=== PATIENT | male | born 1965 | race Caucasian/White ===

== ENCOUNTER → 2018-01-24 13:58 | Outpatient (CLI) | payer BC, SELFPAY ==
--- NOTE | 2018-01-24 14:01 | RAD_ITS ---
STUDY: X-RAY CHEST REASON FOR EXAM: Male, 52 years old. Hypercalcemia TECHNIQUE: PA and lateral views of the chest. COMPARISON: 07/20/2016 FINDINGS: There is hyperinflation of the lungs consistent with chronic obstructive lung disease (COPD). There is a 8mm nodule at the left lung base which is unchanged from the prior study. There is no demonstrated pleural abnormality. Normal size heart. Normal mediastinum and isaac. Normal visualized pulmonary arteries. Normal visualized aortic arch and descending thoracic aorta. There are diffuse degenerative changes of the visualized thoracic spine. Normal visualized ribs, clavicles, and shoulders. There is no demonstrated abnormality of the visualized soft tissue structures of the upper abdomen. RAD/Chest PA and Lateral IMPRESSION: COPD. No change to the 8 mm nodule at the left lung base. Electronically Signed: Glynn Gan DO at 13:29 EDT Tel , Service support ,
== END ==
PROVIDERS: Family Provider Internal Medicine; PCP Internal Medicine; Visit Provider Internal Medicine
DX: E83.52 Hypercalcemia (principal)
CPT/HCPCS: 71046

== ENCOUNTER → 2018-02-21 13:25 | Outpatient (CLI) | payer BC, SELFPAY ==
--- NOTE | 2018-02-21 14:08 | CT_ITS ---
STUDY: CTA CHEST REASON FOR EXAM: Male, 52 years old. Abnormal x-ray. RADIATION DOSAGE (If Supplied By Facility): CTDIvol = ( 21.71 ) mGy, DLP = ( 733.49 ) mGycm TECHNIQUE: The examination was performed with the intravenous administration of 100 ml of Isovue 300 contrast material. Post-processing of the angiographic images was performed, with multiplanar reformation and 3D reconstruction. Individualized dose optimization techniques were used for this CT. COMPARISON: Chest, January 24, 2018. FINDINGS: Normal enhancement of the main pulmonary artery and right and left pulmonary arteries. Normal enhancement of the bilateral peripheral pulmonary arteries. There is no demonstrated pulmonary embolism. There is prominence of the main pulmonary arteries without peripheral pulmonary vascular congestion, suggesting pulmonary hypertension. There is atherosclerotic changes of the thoracic aorta without aneurysm. There is no demonstrated aortic dissection. Normal heart and pericardium. There are calcifications of the coronary arteries. There is evidence of mediastinal lymphadenopathy. There is a 1.3 x 0.9 x 1.4 cm right paratracheal lymph node. There are 2 large subcarinal lymph nodes measuring 1.9 x 1 x 2.1 cm in size and 1.7 x 2.2 x 2.1 cm in size. Normal hilar regions. Normal visualized trachea and bronchi. The lungs are hyper expanded, with flattening of the hemidiaphragms. There is minimal ground glass densities throughout the upper lungs thought to be chronic. There is no focal mass or consolidation. Other than a 7 x 6 mm calcified granuloma in the left lower lobe along the pleural surface. Normal pleura. Normal chest wall structures. There are degenerative changes of thoracic spine. Normal visualized upper abdomen. CT/Chest WITH Contrast IMPRESSION: 1. No evidence of pulmonary embolus. 2. Question pulmonary hypertension. 3. Atherosclerotic changes of the thoracic aorta and coronary arteries. 4. Vague ground glass densities in lungs thought to be chronic. 5. Mediastinal lymphadenopathy. Electronically Signed: Abbe Paz DO at 14:47 EDT Tel [phone], Service support ,
[2018-02-21 14:26] LABS: CREATININE FINGERSTICK 0.9 mg/dL (0.70-1.30); EGFR FINGERSTICK > 60.0000 mL/min (>60)
--- NOTE | 2018-02-21 15:19 | PFTCOMP ---
COMPLETE PULMONARY FUNCTION TEST INTERPRETATION Brief HPI: Patient is a 52 year old male, currently under the care of Dr. Chatman, who presents to [facility] for complete pulmonary function tests secondary to diagnosis of abnormal CT. Respiratory therapist reports good effort and reproducible results. Interpretation: Forced expiration spirometry shows no large airways obstructive ventilatory defect with an FEV1 of 88% predicted. There is no significant bronchodilator response by ATS criteria. Spirograms are of good quality and plateau normally. The respiratory flow volume loop shows a normal pattern. Lung volumes by body plethysmography show a normal total lung capacity at 5.28 L, 87% predicted. All other lung volumes are within normal limits. Diffusion capacity by carbon monoxide is normal at 87% predicted. The airway resistance is normal. No previous pulmonary function tests were available for review. Impression: These pulmonary function tests are grossly within normal limits.
--- NOTE | 2018-02-21 15:22 | PFTCOMP_ITS ---
COMPLETE PULMONARY FUNCTION TEST INTERPRETATION Brief HPI: Patient is a 52 year old male, currently under the care of Dr. Chatman , who presents to [facility] for complete pulmonary function tests secondary to diagnosis of abnormal CT. Respiratory therapist reports good effort and reproducible results. Interpretation: Forced expiration spirometry shows no large airways obstructive ventilatory defect with an FEV1 of 88% predicted. There is no significant bronchodilator response by ATS criteria. Spirograms are of good quality and plateau normally. The respiratory flow volume loop shows a normal pattern. Lung volumes by body plethysmography show a normal total lung capacity at 5.28 L , 87% predicted. All other lung volumes are within normal limits. Diffusion capacity by carbon monoxide is normal at 87% predicted. The airway resistance is normal. No previous pulmonary function tests were available for review. Impression: These pulmonary function tests are grossly within normal limits.
== END ==
PROVIDERS: Family Provider Internal Medicine; PCP Internal Medicine; Visit Provider Internal Medicine
DX: R93.8 Abnormal findings on diagnostic imaging of other specified body structures (principal)
CPT/HCPCS: 71260; 94060; 94726; 94729; Q9967; A4216

== ENCOUNTER → 2018-04-13 13:09 | Outpatient (CLI) | payer BC, SELFPAY ==
[2018-04-13 15:43] LABS: Erythrocyte Sedimentation Rate 5 mm/hr (0-20)
[2018-04-19 13:41] LABS: Angiotensin Convert Enzyme 28 U/L (14-82)
== END ==
PROVIDERS: Family Provider Internal Medicine; PCP Internal Medicine; Visit Provider Internal Medicine Pulmonary Disease
DX: J44.9 Chronic obstructive pulmonary disease, unspecified (principal); R06.00 Dyspnea, unspecified
CPT/HCPCS: 36415; 82164; 85652; 93306

== ENCOUNTER → 2020-04-26 | Outpatient (CLI) | payer BC, SELFPAY ==
--- NOTE | 2020-04-26 06:09 | CT_ITS ---
STUDY: CT CHEST WITHOUT CONTRAST REASON FOR EXAM: Male, 54 years old. AORTIC ROOT DILATATION? AND ADENOPATHY F/U FROM 02/21/2018 CT OF CHEST RADIATION DOSAGE (If Supplied By Facility): CTDIvol = ( 27.12 ) mGy, DLP = ( 941.51 ) mGycm TECHNIQUE: Transaxial imaging was performed without the administration of intravenous contrast material. Individualized dose optimization techniques were used for this CT. COMPARISON: 02/21/2018 FINDINGS: The lungs are normal. There is no demonstrated pleural abnormality. Normal heart and pericardium. There are calcifications of the coronary arteries. Normal mediastinum. Normal hilar regions. There is prominence of the pulmonary hilar arteries without peripheral pulmonary vascular congestion, suggesting pulmonary hypertension. There is atherosclerotic calcification of the aortic arch with tortuosity and elongation of the aortic arch and descending thoracic aorta. Normal osseous structures. There is no demonstrated abnormality of the visualized upper abdomen. CT/Chest without Contrast IMPRESSION: Suspect pulmonary arterial hypertension. Improved appearance of mediastinal lymph nodes which are now normal in size. Electronically Signed: Yves Fatima MD at 12:45 EDT Tel , Service support ,
== END | disposition home or self-care (01) ==
LOC: CT 08:52
PROVIDERS: PCP Internal Medicine; Referring Provider Internal Medicine; Visit Provider Internal Medicine
DX: I77.810 Thoracic aortic ectasia (principal)
CPT/HCPCS: 71250

== ENCOUNTER → 2020-05-08 | Outpatient (CLI) | payer BC, SELFPAY ==
--- NOTE | 2020-05-08 15:02 | ECHOCS_ITS ---
Reason For Study: PHTN Procedure This was a 2D Doppler, Color Flow transthoracic echocardiogram. The study was technically difficult. Contrast injection was performed. Exam performed in department. Left Ventricle Normal LV size. Concentric left ventricular hypertrophy. The estimated ejection fraction is 70 %. No evidence for diastolic dysfunction. No regional wall motion abnormalities noted. Right Ventricle Normal RV size. Normal systolic function. Atria The left atrium is mildly enlarged. Normal right atrium. No doppler evidence for ASD. Mitral Valve There is no mitral valve stenosis. No mitral valve insufficiency. Tricuspid Valve There is no tricuspid stenosis. Trivial tricuspid valve insufficiency. Unable to estimate RV systolic pressure due to insufficient tricuspid regurgitant envelope. Aortic Valve Trisinus/trileaflet aortic valve. There is no aortic stenosis. No aortic valve insufficiency. Pulmonic Valve There is no pulmonic valvular stenosis. No pulmonic valve insufficiency. Great Vessels Normal aortic root. Pericardium/Pleural No pericardial effusion. Medication 22 gauge I.V. with prn adaptor inserted into right arm. Diluted definity 4.5ml given slow IV push to enhance endocardial definition. MMode/2D Measurements & Calculations LVIDd: 4.5 cm IVSd: 2.2 cm Ao root diam: 3.9 cm LVIDs: 3.0 cm LVPWd: 1.6 cm RVDd: 3.2 cm FS: 34.2 % LAV(MOD-bp): 75.8 ml LVAd ap4: 41.6 cm2 SV(MOD-sp4): 105.0 ml LAV(MOD-bp) Indexed: 33.8 ml/m2 EDV(MOD-sp4): 148.1 ml LAV(MOD-sp2): 76.4 ml EDV(sp4-el): 150.9 ml LAV(MOD-sp4): 67.3 ml LVAs ap4: 21.1 cm2 ESV(MOD-sp4): 43.2 ml ESV(sp4-el): 46.7 ml EF(MOD-sp4): 70.9 % EF(sp4-el): 69.1 % SV(sp4-el): 104.2 ml LA A4 area: 23.3 cm2 LA dimension(2D): 3.9 cm RA A4 area: 19.1 cm2 Time Measurements MV dec time: 0.29 sec Doppler Measurements & Calculations MV E max hima: 63.1 cm/sec Lat Peak E' Hima: 6.3 cm/sec Med Peak E' Hima: 4.8 cm/sec MV A max hima: 90.7 cm/sec E/E' lat: 10.1 E/E' med: 13.2 MV E/A: 0.70 Ao V2 max: 150.1 cm/sec LV V1 max: 141.9 cm/sec PA V2 max: 109.6 cm/sec Ao max P.0 mmHg LV V1 max P.1 mmHg Interpretation Summary The estimated ejection fraction is 70 %. No evidence for diastolic dysfunction. Concentric left ventricular hypertrophy. The left atrium is mildly enlarged. The study was technically difficult. Contrast injection was performed. Ordering Physician: Gabriella Chatman Referring Physician: Gabriella Chatman Performed By: Soo Cartwright, NEO, RVT
== END | disposition home or self-care (01) ==
LOC: CVS 15:01
PROVIDERS: PCP Internal Medicine; Referring Provider Internal Medicine; Visit Provider Internal Medicine
DX: I27.20 Pulmonary hypertension, unspecified (principal)
CPT/HCPCS: 93306; Q9957; A4216; C8929

== ENCOUNTER → 2020-05-27 | Outpatient (CLI) | payer BC, SELFPAY ==
[2020-05-30 12:44] LABS: B. pertussis IgA < 1.0 index (0.0-0.9); B. pertussis IgG 3.17 index (0.00-0.94); B. pertussis IgM < 1.0 index (0.0-0.9)
== END | disposition home or self-care (01) ==
LOC: LABSPEC 12:37
PROVIDERS: PCP Internal Medicine; Referring Provider Internal Medicine; Visit Provider Internal Medicine
DX: G51.0 Bell's palsy (principal)

== ENCOUNTER → 2020-10-13 12:13 | Outpatient (CLI) | payer BC, SELFPAY ==
--- NOTE | 2020-10-13 12:25 | RAD_ITS ---
STUDY: X-RAY - ABDOMEN/PELVIS REASON FOR EXAM: Male, 55 years old. KIDNEY STONE TECHNIQUE: Single AP view of the abdomen / pelvis. COMPARISON: None. FINDINGS: Normal visualized lung bases. There is a moderate amount of colonic fecal material. The visualized liver, spleen and kidneys are grossly normal in size and morphology. Normal soft tissue structures. Normal visualized osseous structures. RAD/Abdomen Single View IMPRESSION: Moderate amount of fecal material is seen in the colon. Electronically Signed: Jerome Abebe MD at 18:27 EST , Service support ,
[2020-10-22 15:58] LABS: Source Not Provided
== END ==
PROVIDERS: PCP Internal Medicine; Referring Provider Urology; Visit Provider Urology
DX: N20.1 Calculus of ureter (principal); N20.0 Calculus of kidney
CPT/HCPCS: 74018; 82360

== ENCOUNTER 2021-09-12 20:20 | Emergency (ER) | payer BC, SELFPAY ==
--- NOTE | 2021-09-12 22:03 | EDS_ITS ---
DATE OF SERVICE 09/12/21 CHIEF COMPLAINT: Right leg pain. HISTORY OF PRESENT ILLNESS: This is a 56-year-old male who sustained a mechanical fall about 5 days ago and hit his knee. He has been able to ambulate and has had minimal knee pain; however, 2 days after he fell he noticed gradual onset of progressive right lower extremity swelling and calf pain. He has no groin pain. He has no chest pain or shortness of breath. He has no back pain or pleuritic component. No recent fever or chills. No other trauma. PHYSICAL EXAMINATION: VITAL SIGNS: Unremarkable vitals, normal pulse ox. LUNGS: Clear. HEART: Regular. ABDOMEN: Soft and nontender. EXTREMITIES: No knee pain with full range of motion. The [id number], tib-fib region has significant edema with calf pain. No bony tenderness. He is able to ambulate and stand on it. EMERGENCY DEPARTMENT COURSE AND MEDICAL DECISION MAKING: The patient has edema after a fall; however, it only started a few days later. He has no bony tenderness; therefore, I do not believe he needs an x-ray. IMPRESSION: Right lower extremity edema. Right knee contusion. DISPOSITION/PLAN: I will set him up for a DVT study, since it is 10 p.m. and we do not have that availability. I will give him Lovenox, per out protocol, and return him to the emergency department. Discharged in stable condition.
== END 2021-09-12 22:37 | disposition home or self-care (01) ==
LOC: ED 09-15 07:27
PROVIDERS: PCP Internal Medicine
DX: S80.11XA Contusion of right lower leg, initial encounter (principal); W19.XXXA Unspecified fall, initial encounter; Y93.9 Activity, unspecified; Y92.9 Unspecified place or not applicable; R60.0 Localized edema
CPT/HCPCS: 96372; 99283

== ENCOUNTER 2021-09-13 11:36 | Outpatient (CLI) | payer BC, SELFPAY ==
--- NOTE | 2021-09-13 11:43 | VDLE_ITS ---
Reason For Study: Pain and swelling RIGHT GSV is normal. CFV is compressible, spontaneous, phasic, competent and demonstrates normal augmentation. FV is compressible, spontaneous, phasic, competent and demonstrates normal augmentation. POP V is compressible, spontaneous, phasic, competent and demonstrates normal augmentation. T/P Trunk is compressible. PTV is compressible. RT PerV is compressible. Acute deep vein thrombosis is noted in the right GastrocV. Procedure This is a venous duplex using B-mode, color flow and spectral Doppler. Exam performed in department. A preliminary report was called and/or faxed to [facility]. will call patient. VL/Venous Duplex US, Unilateral Interpretation Summary Acute deep venous thrombosis right gastrocnemius vein. Patent and compressible right great saphenous vein Ordering Physician: Cricket Sethi Referring Physician: Gabriella Chatman M.D. Performed By: Roselia Overton RVT
== END 2021-09-13 23:59 | disposition short-term general hospital (02) ==
LOC: VL 11:37
PROVIDERS: PCP Internal Medicine; Visit Provider Emergency Medicine
DX: M79.604 Pain in right leg (principal); M79.89 Other specified soft tissue disorders
CPT/HCPCS: 93971